=== PATIENT | female | born 1965 | race Two or more races ===

== ENCOUNTER 2019-02-07 11:23 | Emergency (ER) | payer MEDICAID ==
[~2019-02-07] VITALS: Ht 160 cm; Wt 65.9 kg
[2019-02-07] MEDS ORDERED: KETOROLAC 15MG/ML VIAL IM ONE (12:00)
[2019-02-07 12:26] VITALS: BP 106/74
== END 2019-02-07 12:25 | disposition home or self-care (01) ==
LOC: ER 11:23
DX: M54.6 Pain in thoracic spine (principal); M54.2 Cervicalgia; K21.9 Gastro-esophageal reflux disease without esophagitis; Z90.49 Acquired absence of other specified parts of digestive tract; Z98.890 Other specified postprocedural states; Z90.710 Acquired absence of both cervix and uterus
CPT/HCPCS: 96372; 99283; J1885